=== PATIENT | male | born 1950 | race Caucasian/White ===

== ENCOUNTER 2020-07-22 16:33 | Emergency (ER) | payer MEDICARE ==
[~2020-07-22] VITALS: Ht 177.8 cm; Wt 82.6 kg
[2020-07-22 16:33] VITALS: BP 166/97
--- NOTE | 2020-07-22 17:36 | NUR ---
RING REMOVED BY .
--- NOTE | 2020-07-22 17:42 | NUR ---
Patient discharged to home in stable condition. Written and verbal after care instructions given. Patient verbalizes understanding of instruction.
== END 2020-07-22 17:42 | disposition home or self-care (01) ==
LOC: ER 16:37
DX: S60.455A Superficial foreign body of left ring finger, initial encounter (principal); W45.8XXA Other foreign body or object entering through skin, initial encounter; Y93.89 Activity, other specified; Y92.89 Other specified places as the place of occurrence of the external cause; Y99.8 Other external cause status